=== PATIENT | female | born 1970 | race Hispanic/Latino ===

== ENCOUNTER 2018-01-06 20:08 | Emergency (ER) | payer BC, OTHER ==
[2018-01-06] MEDS ORDERED: predniSONE 20 MG TAB ONE (21:12)
[2018-01-06] MEDS ORDERED: ALBUTEROL 2.5 MG/3 ML NEB SOL ONE (21:12)
[2018-01-06 21:23] LABS: Urine Blood TRACE (NEG); Urine Glucose NEGATIVE (NEG); Urine Protein NEGATIVE (NEG); Urine Specific Gravity 1.015 (1.005-1.030)
--- NOTE | 2018-01-06 23:08 | ER ---
Nurse's Notes [facility] Name: Leela Ugalde Age: 47 yrs Sex: Female : 1970 Arrival Date: 01/06/2018 Time: 20:11 Bed 13 Private MD: Diagnosis: Bronchitis, not specified as acute or chronic Presentation: 01/06 20:22 Presenting complaint: Patient states: Flu like symptoms that started 10 days ago not aj improving. Patient reports taking part of a z pack Monday, Monday, and . Patient has tried multiple OTC medications with little relief. Transition of care: patient was not received from another setting of care. Onset of symptoms was December 27, 2017. Risk Assessment: Do you want to hurt yourself or someone else? Patient reports no desire to harm self or others. Initial Sepsis Screen: Does the patient meet any 2 criteria? No. Patient's initial sepsis screen is negative. Does the patient have a suspected source of infection? No. Patient's initial sepsis screen is negative. Care prior to arrival: None. 20:22 Method Of Arrival: Ambulatory aj 20:22 Acuity: ROSALINO 3 aj Triage Assessment: 20:24 General: Appears in no apparent distress. comfortable, Behavior is calm, cooperative, aj appropriate for age. Pain: Denies pain. EENT: Reports nasal congestion nasal discharge. Neuro: Level of Consciousness is awake, alert, obeys commands, Oriented to person, place, time, situation, Appropriate for age. Respiratory: Reports cough that is Airway is patent Respiratory effort is even, unlabored, Respiratory pattern is regular, symmetrical. Derm: Skin is intact, is healthy with good turgor, Skin is pink, warm \T\ dry. normal. 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 - Social history:: Smoking status: Patient/guardian denies using tobacco. - Ebola Screening: : Patient negative for fever greater than or equal to 101.5 degrees Fahrenheit, and additional compatible Ebola Virus Disease symptoms Patient denies exposure to infectious person Patient denies travel to an Ebola-affected area in the 21 days before illness onset No symptoms or risks identified at this time. Screenin:30 Abuse screen: Denies threats or abuse. Denies injuries from another. Nutritional cc3 screening: No deficits noted. Tuberculosis screening: No symptoms or risk factors identified. Fall Risk Ambulatory Aid- None/Bed Rest/Nurse Assist (0 pts). Gait- Normal/Bed Rest/Wheelchair (0 pts) Mental Status- Oriented to own ability (0 pts). Assessment: 20:30 General: see triage assessment. cc3 21:28 Reassessment: Patient appears in no apparent distress at this time. Patient and/or cc3 family updated on plan of care and expected duration. Pain level reassessed. Patient is alert, oriented x 3, equal unlabored respirations, skin warm/dry/pink. 22:30 Reassessment: Patient appears in no apparent distress at this time. Patient and/or cc3 family updated on plan of care and expected duration. Pain level reassessed. Patient is alert, oriented x 3, equal unlabored respirations, skin warm/dry/pink. 23:15 Reassessment: Patient appears in no apparent distress at this time. Patient and/or cc3 family updated on plan of care and expected duration. Pain level reassessed. Patient is alert, oriented x 3, equal unlabored respirations, skin warm/dry/pink. SETH Nava discharged the patient with prescriptions given. No IV cannula in situ. Patient left ER vitally stable and ambulatory with her family. Vital Signs: 20:24 BP 145 / 86; Pulse 90; Resp 20; Temp 98.1; Pulse Ox 98% on R/A; Weight 65.77 kg; Height aj 5 ft. 2 in. (157.48 cm); 21:00 BP 152 / 89; Pulse 90; Resp 20 S; Pulse Ox 97% on R/A; cc3 22:45 BP 137 / 87; Pulse 93; Resp 20 S; Pulse Ox 97% on R/A; cc3 23:00 BP 132 / 85; Pulse 91; Resp 19 S; Pulse Ox 97% on R/A; Pain 0/10; cc3 20:24 Body Mass Index 26.52 (65.77 kg, 157.48 cm) ED Course: 20:11 Patient arrived in ED. am2 20:24 Triage completed. aj 20:24 Arm band placed on left wrist. Patient placed in an exam room. aj 20:30 Patient has correct armband on for positive identification. Bed in low position. Call cc3 light in reach. Pulse ox on. NIBP on. 20:34 Elijah Nunn NP is PHCP. pm1 20:34 Unruly Espinal MD is Attending Physician. pm1 20:37 Selene Chapa is Primary Nurse. cc3 21:37 X-ray completed. Patient tolerated procedure well. jb2 21:45 Chest Pa And Lat (2 Views) XRAY In Process Unspecified. EDMS 23:15 No provider procedures requiring assistance completed. Patient did not have IV access cc3 during this emergency room visit. Administered Medications: 21:05 Drug: predniSONE 60 mg Route: PO; cc3 21:24 Follow up: Response: No adverse reaction; Marked relief of symptoms cc3 21:06 Drug: Albuterol 2.5 mg Route: Inhalation; cc3 21:24 Follow up: Response: No adverse reaction cc3 Outcome: 23:07 Discharge ordered by MD. pm1 23:15 Discharged to home ambulatory, with family. cc3 23:15 Condition: stable 23:15 Discharge instructions given to patient, family, Instructed on discharge instructions, follow up and referral plans. medication usage, Demonstrated understanding of instructions, follow-up care, medications, Prescriptions given X 4. 23:23 Patient left the ED. cc3 Signatures: Dispatcher [employer] EDMS Didi Do RN RN aj Buechter, Jesse jb2 Elijah Nunn NP MANAGER BUDGET pm1 Didi Nieves am2 Selene Chapa cc3
--- NOTE | 2018-01-06 23:08 | EDPHYS ---
Physician Documentation [facility] Name: Leela Ugalde Age: 47 yrs Sex: Female : 1970 Arrival Date: 01/06/2018 Time: 20:11 Bed 13 Private MD: ED Physician Unruly Espinal HPI: 01/06 21:00 This 47 yrs old Female presents to ER via Ambulatory with complaints of Cough, pm1 Fever. 21:00 The patient or guardian reports cough, with no sputum. pm1 21:00 Onset: The symptoms/episode began/occurred 10 day(s) ago. Severity of symptoms: in the pm1 emergency department the symptoms are unchanged. Modifying factors: The symptoms are alleviated by nothing, the symptoms are aggravated by nothing. Associated signs and symptoms: Pertinent negatives: chest pain, ear ache, fever, nausea, rhinorrhea, sore throat, vomiting. The patient has not experienced similar symptoms in the past. patient with cough and congestion for 10 days. has been taking multiple OTC medications without any relief. Took 3 day Z-pack course starting Monday and did not have any improvement. 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 - Social history:: Smoking status: Patient/guardian denies using tobacco. - Ebola Screening: : Patient negative for fever greater than or equal to 101.5 degrees Fahrenheit, and additional compatible Ebola Virus Disease symptoms Patient denies exposure to infectious person Patient denies travel to an Ebola-affected area in the 21 days before illness onset No symptoms or risks identified at this time. ROS: 21:00 Constitutional: Negative for fever, chills, and weight loss, Eyes: Negative for injury, pm1 pain, redness, and discharge, ENT: Negative for injury, pain, and discharge, Neck: Negative for injury, pain, and swelling, Cardiovascular: Negative for chest pain, palpitations, and edema. 21:00 Abdomen/GI: Negative for abdominal pain, nausea, vomiting, diarrhea, and constipation, Back: Negative for injury and pain, MS/Extremity: Negative for injury and deformity, Skin: Negative for injury, rash, and discoloration, Neuro: Negative for headache, weakness, numbness, tingling, and seizure. 21:00 Respiratory: Positive for cough, Negative for shortness of breath, sputum production, wheezing. Exam: 21:00 Constitutional: This is a well developed, well nourished patient who is awake, alert, pm1 and in no acute distress. Head/Face: Normocephalic, atraumatic. Eyes: Pupils equal round and reactive to light, extra-ocular motions intact. Lids and lashes normal. Conjunctiva and sclera are non-icteric and not injected. Cornea within normal limits. Periorbital areas with no swelling, redness, or edema. ENT: Nares patent. No nasal discharge, no septal abnormalities noted. Tympanic membranes are normal and external auditory canals are clear. Oropharynx with no redness, swelling, or masses, exudates, or evidence of obstruction, uvula midline. Mucous membranes moist. Neck: Trachea midline, no thyromegaly or masses palpated, and no cervical lymphadenopathy. Supple, full range of motion without nuchal rigidity, or vertebral point tenderness. No Meningismus. Chest/axilla: Normal chest wall appearance and motion. Nontender with no deformity. No lesions are appreciated. Cardiovascular: Regular rate and rhythm with a normal S1 and S2. No gallops, murmurs, or rubs. Normal PMI, no JVD. No pulse deficits. 21:00 Abdomen/GI: Soft, non-tender, with normal bowel sounds. No distension or tympany. No guarding or rebound. No evidence of tenderness throughout. Back: No spinal tenderness. No costovertebral tenderness. Full range of motion. Skin: Warm, dry with normal turgor. Normal color with no rashes, no lesions, and no evidence of cellulitis. MS/ Extremity: Pulses equal, no cyanosis. Neurovascular intact. Full, normal range of motion. 21:00 Respiratory: the patient does not display signs of respiratory distress, Respirations: normal, Breath sounds: bronchial sounds, are scattered. 21:00 Neuro: Orientation: is normal, Motor: is normal, moves all fours, Sensation: is normal, no obvious gross deficits. Vital Signs: 20:24 BP 145 / 86; Pulse 90; Resp 20; Temp 98.1; Pulse Ox 98% on R/A; Weight 65.77 kg; Height aj 5 ft. 2 in. (157.48 cm); 21:00 BP 152 / 89; Pulse 90; Resp 20 S; Pulse Ox 97% on R/A; cc3 22:45 BP 137 / 87; Pulse 93; Resp 20 S; Pulse Ox 97% on R/A; cc3 23:00 BP 132 / 85; Pulse 91; Resp 19 S; Pulse Ox 97% on R/A; Pain 0/10; cc3 20:24 Body Mass Index 26.52 (65.77 kg, 157.48 cm) aj MDM: 20:36 Patient medically screened. pm1 23:06 Data reviewed: vital signs. Data interpreted: Pulse oximetry: on room air is 97 %. pm1 Interpretation: normal. Counseling: I had a detailed discussion with the patient and/or guardian regarding: the historical points, exam findings, and any diagnostic results supporting the discharge/admit diagnosis, radiology results, the need for outpatient follow up, to return to the emergency department if symptoms worsen or persist or if there are any questions or concerns that arise at home. 01/07 20:42 ED course: Called patient to inform her about the results of the pneumonia. Patient is pm1 feeling better. Educated on return precautions. 01/06 21:21 Order name: Urine Dipstick--Ancillary (enter results); Complete Time: 21:36 ms 01/06 21:21 Order name: Urine --Ancillary (enter results); Complete Time: 21:36 ms 01/06 20:49 Order name: Urine Dipstick-Ancillary (obtain specimen); Complete Time: 21:21 pm1 01/06 20:50 Order name: Chest Pa And Lat (2 Views) XRAY; Complete Time: 20:34 pm1 01/06 20:49 Order name: Urine Test (obtain specimen); Complete Time: 21:21 pm1 Administered Medications: 01/06 21:05 Drug: predniSONE 60 mg Route: PO; cc3 21:24 Follow up: Response: No adverse reaction; Marked relief of symptoms cc3 21:06 Drug: Albuterol 2.5 mg Route: Inhalation; cc3 21:24 Follow up: Response: No adverse reaction cc3 Disposition: 01/07 00:58 Co-signature as Attending Physician, Unruly Espinal MD. Disposition: 01/06/18 23:07 Discharged to Home. Impression: Bronchitis, not specified as acute or chronic. - Condition is Stable. - Discharge Instructions: Acute Bronchitis, Adult. - Prescriptions for Tessalon Perles 100 mg Oral Capsule - take 1 capsule by ORAL route every 8 hours As needed; 15 capsule. Medrol (Chris) 4 mg Oral Tablets, Dose Pack - take 1 tablet by ORAL route as directed - follow package instructions; 1 packet. Albuterol Sulfate 90 mcg/actuation - inhale 1-2 puff by INHALATION route every 4-6 hours; 1 Inhaler. Doxycycline Hyclate 100 mg Oral Tablet - take 1 tablet by ORAL route every 12 hours; 20 tablet. - Medication Reconciliation Form, Thank You Letter, Antibiotic Education, Prescription Opioid Use form. - Follow up: Emergency Department; When: As needed; Reason: Worsening of condition. Follow up: Private Physician; When: 2 - 3 days; Reason: Recheck today's complaints, Continuance of care, Re-evaluation by your physician. - Problem is new. - Symptoms have improved. Signatures: Dispatcher [employer] EDMS Didi Do RN RN Elijah Trinidad, AOC OPERATIONS INTELLIGENCE OFFICER AOC OPERATIONS INTELLIGENCE OFFICER pm1 Unruly Espinal MD MD Selene Chapa cc3 Corrections: (The following items were deleted from the chart) 01/06 23:10 23:07 01/06/2018 23:07 Discharged to Home. Impression: Pneumonia, unspecified organism. pm1 Condition is Stable. Forms are Medication Reconciliation Form, Thank You Letter, Antibiotic Education, Prescription Opioid Use. Follow up: Emergency Department; When: As needed; Reason: Worsening of condition. Follow up: Private Physician; When: 2 - 3 days; Reason: Recheck today's complaints, Continuance of care, Re-evaluation by your physician. Problem is new. Symptoms have improved. pm1 23:23 23:10 01/06/2018 23:07 Discharged to Home. Impression: Bronchitis, not specified as cc3 acute or chronic. Condition is Stable. Discharge Instructions: Acute Bronchitis, Adult. Prescriptions for Tessalon Perles 100 mg Oral Capsule - take 1 capsule by ORAL route every 8 hours As needed; 15 capsule, Medrol (Chris) 4 mg Oral Tablets, Dose Pack - take 1 tablet by ORAL route as directed - follow package instructions; 1 packet, Albuterol Sulfate 90 mcg/actuation - inhale 1-2 puff by INHALATION route every 4-6 hours; 1 Inhaler, Doxycycline Hyclate 100 mg Oral Tablet - take 1 tablet by ORAL route every 12 hours; 20 tablet. and Forms are Medication Reconciliation Form, Thank You Letter, Antibiotic Education, Prescription Opioid Use. Follow up: Emergency Department; When: As needed; Reason: Worsening of condition. Follow up: Private Physician; When: 2 - 3 days; Reason: Recheck today's complaints, Continuance of care, Re-evaluation by your physician. Problem is new. Symptoms have improved. pm1
--- NOTE | 2018-01-07 10:57 | RAD REPORT ---
EXAM DESCRIPTION: RAD - Chest Pa And Lat (2 Views) - 01/06/2018 9:45 pm CLINICAL HISTORY: COUGH Chest pain. COMPARISON: No comparisons FINDINGS: Ill-defined opacities are present in the left lower lobe compatible with developing pneumo jim. The heart is normal in size. No displaced fractures. IMPRESSION: Developing left lower lobe pneumonia.
== END 2018-01-06 23:23 | disposition home or self-care (01) ==
LOC: ER 20:08
DX: J40 Bronchitis, not specified as acute or chronic (principal); Z88.6 Allergy status to analgesic agent
CPT/HCPCS: 71046; 81003; 81025; 99284; J7512